=== PATIENT | female | born 1990 ===

== ENCOUNTER 2025-07-17 12:52 | Emergency (ER) | payer OTHER ==
[~2025-07-17] VITALS: Ht 165.1 cm; Wt 99.7 kg
[2025-07-17 13:01] VITALS: O2SAT 99
[2025-07-17 13:21] VITALS: BP 147/98; PULSE 110; RESP 18; TEMP 36.7; O2SAT 100
== END 2025-07-17 16:35 | disposition left against medical advice (07) ==
LOC: ER 12:52
DX: R07.89 Other chest pain (principal); R10.9 Unspecified abdominal pain
CPT/HCPCS: 71045; 93005